=== PATIENT | male | born 1980 | race Two or more races ===

== ENCOUNTER 2020-08-23 10:02 | Emergency (ER) | payer MEDICAID ==
[~2020-08-23] VITALS: Ht 177.8 cm; Wt 68.0 kg
[2020-08-23 10:35] VITALS: BP 139/87
[2020-08-23] MEDS ORDERED: IBUP-2029 MT (10:41)
== END 2020-08-23 11:01 | disposition home or self-care (01) ==
LOC: ER 10:20
DX: B34.9 Viral infection, unspecified (principal); Z20.822 Contact with and (suspected) exposure to COVID-19
CPT/HCPCS: 99283; C9803; U0003

== ENCOUNTER 2021-06-12 15:07 | Emergency (ER) | payer MEDICAID ==
[~2021-06-12] VITALS: Ht 175.3 cm; Wt 80.0 kg
[~2021-06-12 15:07] MED LIST: IBUP-2029 MT
[2021-06-12 15:15] VITALS: BP 129/91
[2021-06-12] MEDS ORDERED: FLUORESCEIN SODIUM 1MG/STRIP LEFTEYE ONE (15:30)
[2021-06-12] MEDS ORDERED: TETRACAINE 0.5% OPHTH DROPS 4ML BOTHEYE ONE (15:30)
[2021-06-12] MEDS ORDERED: POLY10DR LEFTEYE (15:58)
== END 2021-06-12 16:11 | disposition home or self-care (01) ==
LOC: ER 15:07
DX: H10.9 Unspecified conjunctivitis (principal)
CPT/HCPCS: 99283

== ENCOUNTER 2021-10-07 16:22 | Emergency (ER) | payer MEDICAID ==
[~2021-10-07] VITALS: Ht 177.8 cm; Wt 80.0 kg
[~2021-10-07 16:22] MED LIST changes: +POLY10DR LEFTEYE
[2021-10-07] MEDS ORDERED: KETOROLAC 15MG/ML VIAL IM ONE (20:30)
[2021-10-07 20:45] VITALS: BP 136/76
== END 2021-10-07 20:46 | disposition home or self-care (01) ==
LOC: ER 16:22
DX: R51.9 Headache, unspecified (principal); E78.00 Pure hypercholesterolemia, unspecified; Z98.890 Other specified postprocedural states
CPT/HCPCS: 70450; 96372; 99284; J1885